=== PATIENT | male | born 1930 | race Caucasian/White ===

== ENCOUNTER 2018-08-25 06:45 | Inpatient (IN) | payer MEDICARE, BC ==
[~2018-08-25] VITALS: Ht 167.6 cm; Wt 65.0 kg
[2018-08-25] MEDS ORDERED: ondansetron/PF 4mg/2ml inj IV ONE (06:55)
[2018-08-25 07:19] LABS: BASOPHILS % (AUTO) 0.2 % (0-1); EOSINOPHILS % (AUTO) 0.3 % (0-6); LYMPHOCYTES # (AUTO) 0.6 X10'3 (1.1-4.8); MEAN CORPUSCULAR HEMOGLOBIN 31.3 PG (27.0-31.0); MEAN CORPUSCULAR HGB CONC 34.2 g/dL (33.0-36.5); MEAN CORPUSCULAR VOLUME 91.7 FL (78-98); MEAN PLATELET VOLUME 7.9 FL (7.4-10.4); MONOCYTES % (AUTO) 5.4 % (2-12); NEUTROPHILS # (AUTO) 16.9 X10'3 (1.8-7.7); NEUTROPHILS % (AUTO) 91.1 % (42-75); PLATELET COUNT 221 X10'3 (140-440); RED BLOOD COUNT 4.48 X10'6 (4.70-6.10); RED CELL DISTRIBUTION WIDTH 13.9 % (11.5-14.5); WHITE BLOOD COUNT 18.5 X10'3 (4.5-11.0)
--- NOTE | 2018-08-25 07:19 | NUR ---
ekg showed stemi,Dr. Berman ordered to hold off stemia lert and will talk to Dr. Baird first.CN aware.
--- NOTE | 2018-08-25 07:20 | NUR ---
per Dr. Berman-not calling it a stemi.Spouse at bedside.zofran given.
--- NOTE | 2018-08-25 07:20 | NUR ---
patient attached to ekg pads and monitor.
[2018-08-25 07:24] LABS: ALANINE AMINOTRANSFERASE 31 U/L (12-78); ALBUMIN 3.7 G/DL (3.4-5.0); ALBUMIN/GLOBULIN RATIO 1.1 (1.1-1.5); ALKALINE PHOSPHATASE 87 IU/L (46-116); ANION GAP 6 (8-16); ASPARTATE AMINO TRANSFERASE 20 U/L (10-37); BILIRUBIN,TOTAL 0.7 MG/DL (0.1-1.0); BLOOD UREA NITROGEN 22 MG/DL (7-18); CALCIUM 10.3 MG/DL (8.5-10.1); CHLORIDE 107 MMOL/L (99-107); CREATININE 1.22 MG/DL (0.60-1.10); GLUCOSE 182 MG/DL (70-104); POTASSIUM 4.4 MMOL/L (3.5-5.1); SODIUM 139 MMOL/L (135-145); TOTAL CARBON DIOXIDE 25.7 MMOL/L (24-32); eGFR 56 ML/MIN
[2018-08-25 07:25] LABS: PARTIAL THROMBOPLASTIN TIME 25 SECONDS (22-32)
[2018-08-25 07:31] LABS: MAGNESIUM 1.7 MG/DL (1.5-2.4)
--- NOTE | 2018-08-25 07:38 | NUR ---
PATIENT UNABLE TO URINATE AT THIS TIME.
--- NOTE | 2018-08-25 07:39 | NUR ---
BLOOD RESULT BACK,CODIE CHANGED FROM LEVEL 2 TO LEVEL 3.
[2018-08-25] MEDS ORDERED: TRAZ-251 PO (07:52)
--- NOTE | 2018-08-25 08:40 | NUR ---
urine collected thru straight cath noted 600ml clear orange urine.
--- NOTE | 2018-08-25 08:43 | NUR ---
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
--- NOTE | 2018-08-25 08:50 | NUR ---
URINE SENT TO [facility].
[2018-08-25 08:58] LABS: CLARITY,URINE CLEAR (Clear); COLOR,URINE YELLOW (Yellow); GLUCOSE, URINE NEGATIVE (Neg); KETONES,URINE NEGATIVE (Neg); LEUKOCYTE ESTERASE ,URINE NEGATIVE (Neg); NITRITES, URINE NEGATIVE (Neg); OCCULT BLOOD,URINE NEGATIVE (Neg); PH,URINE 5.5 (4.8-8.0); PROTEIN,URINE NEGATIVE (Neg); UROBILINOGEN,URINE 0.2 E.U/dL (0.2-1.0)
[2018-08-25 09:12] LABS: UA COLLECTION TYPE STRAIGHT CATH
[2018-08-25] MEDS: K and/or MAG REPLACEMENT MC SCH (11:20)
[2018-08-25] MEDS ORDERED: morphine 2 MG/ML inj. syringe IV PRN ×2 (11:20)
[2018-08-25] MEDS ORDERED: mag hydrox/Alum hydrox/simeth 30ml oral suspension PO PRN (11:20)
[2018-08-25] MEDS ORDERED: HYDROcodone/acetaminophen 5mg/325mg tablet PO PRN (11:20)
[2018-08-25] MEDS ORDERED: bisacodyl 10mg suppository rectal RC PRN (11:20)
[2018-08-25] MEDS ORDERED: diphenhydrAMINE 25mg capsule PO PRN (11:20)
[2018-08-25] MEDS ORDERED: ondansetron/PF 4mg/2ml inj IV PRN (11:20)
[2018-08-25] MEDS ORDERED: potassium Cl 20 mEq SR tablet PO PRN ×2 (11:20)
[2018-08-25] MEDS ORDERED: acetaminophen 325mg tablet PO PRN ×2 (11:20)
[2018-08-25] MEDS ORDERED: potassium Cl 40MEQ/NS 500ml 500 ML IV PRN ×2 (11:20)
[2018-08-25] MEDS ORDERED: magnesium hydroxide 30ml (MOM) UD suspension PO PRN (11:20)
[2018-08-25] MEDS ORDERED: magnesium 4gm in 100ml NS 100 ML IV PRN (11:20)
[2018-08-25] MEDS ORDERED: magnesium Cl slow-release 64mg tablet PO PRN (11:20)
[2018-08-25] MEDS ORDERED: magnesium 2GM in 50ml NS 50 ML IV PRN (11:20)
[2018-08-25] MEDS: normal saline 1000ml 1,000 ML IV SCH ×2 (11:33→13:21)
--- NOTE | 2018-08-25 12:24 | NUR ---
Dr. Baird at bedside.
[2018-08-25 14:30] LABS: HEMOGLOBIN A1C 5.8 % (4.5-6.2)
[2018-08-25 15:00] VITALS: BP 113/60
--- NOTE | 2018-08-25 16:09 | NUR ---
promotional table spacer PAGER ID: [phone] MESSAGE: [id number] Edson Rodriguez: Med rec is ready for you to review. EUSEBIO Marroquin Ext [phone]
--- NOTE | 2018-08-25 17:14 | NUR ---
Page to Case Management: [id number] pt Michael wants to do a new POA.
[2018-08-25 18:00] VITALS: BP 125/59
--- NOTE | 2018-08-25 18:15 | NUR ---
Patient in room PCU 3025. I have received report from Lopez and had the opportunity to ask questions and assume patient care.
--- NOTE | 2018-08-25 18:22 | NUR ---
Problems reprioritized. Patient report given, questions answered & plan of care reviewed with EUSEBIO Galarza.
[2018-08-25] MEDS: heparin, porcine 5000 units/ml vial SQ SCH (19:52)
[2018-08-25 22:00] VITALS: BP 119/49
[2018-08-26] VITALS (14 sets, daily range): BP systolic 106–159; BP diastolic 48–95
[2018-08-26 02:11] LABS: BASOPHILS % (AUTO) 0.3 % (0-1); EOSINOPHILS % (AUTO) 0.2 % (0-6); HEMOGLOBIN 12.9 g/dl (14.0-17.9); LYMPHOCYTES % (AUTO) 9.9 % (21-51); MEAN CORPUSCULAR HGB CONC 34.7 g/dL (33.0-36.5); MEAN CORPUSCULAR VOLUME 92.1 FL (78-98); MEAN PLATELET VOLUME 8.1 FL (7.4-10.4); MONOCYTES # (AUTO) 0.5 X10'3 (0-0.9); MONOCYTES % (AUTO) 4.8 % (2-12); NEUTROPHILS # (AUTO) 8.5 X10'3 (1.8-7.7); NEUTROPHILS % (AUTO) 84.8 % (42-75); PLATELET COUNT 173 X10'3 (140-440); RED BLOOD COUNT 4.02 X10'6 (4.70-6.10); RED CELL DISTRIBUTION WIDTH 14.1 % (11.5-14.5)
[2018-08-26 02:20] LABS: ALANINE AMINOTRANSFERASE 22 U/L (12-78); ALBUMIN 2.8 G/DL (3.4-5.0); ALBUMIN/GLOBULIN RATIO 0.9 (1.1-1.5); ALKALINE PHOSPHATASE 68 IU/L (46-116); ANION GAP 4 (8-16); ASPARTATE AMINO TRANSFERASE 16 U/L (10-37); BILIRUBIN,TOTAL 0.6 MG/DL (0.1-1.0); BLOOD UREA NITROGEN 18 MG/DL (7-18); BUN/CREATININE RATIO 19.1 (5.4-32.0); CALCIUM 8.9 MG/DL (8.5-10.1); CHLORIDE 105 MMOL/L (99-107); CHOL/HDL RATIO 3.1 (0.00-4.99); CHOLESTEROL 117 MG/DL (0-200); CREATININE 0.94 MG/DL (0.60-1.10); GLUCOSE 112 MG/DL (70-104); HDL CHOLESTEROL 38 MG/DL (35-60); LDL CHOLESTEROL 73 MG/DL (50-100); MAGNESIUM 1.7 MG/DL (1.5-2.4); SODIUM 135 MMOL/L (135-145); TOTAL CARBON DIOXIDE 25.7 MMOL/L (24-32); TOTAL PROTEIN 5.8 G/DL (6.4-8.2); TRIGLYCERIDES 78 MG/DL (20-135); eGFR 76 ML/MIN
--- NOTE | 2018-08-26 06:10 | NUR ---
Problems reprioritized. Patient report given, questions answered & plan of care reviewed with Kay.
--- NOTE | 2018-08-26 06:50 | NUR ---
Patient in room PCU 3025. I have received report from Uday KAPLAN and had the opportunity to ask questions and assume patient care.
[2018-08-26] MEDS: normal saline 1000ml 1,000 ML IV SCH ×2 (07:20→16:43)
[2018-08-26] MEDS: heparin, porcine 5000 units/ml vial SQ SCH ×2 (07:21→19:38)
[2018-08-26] MEDS: K and/or MAG REPLACEMENT MC SCH (08:00)
[2018-08-26] MEDS ORDERED: ceFAZolin 1000mg inj ONE (10:45)
[2018-08-26] MEDS ORDERED: cefazolin/dext.iso 2gm/100ml 100 ML IV ONE (10:46)
[2018-08-26] MEDS ORDERED: lidocaine 1%/epinephrine 1:100,000 injection 50ml vial ONE (10:46)
--- NOTE | 2018-08-26 10:55 | NUR ---
Patient picked up and taken to cathode builder for pacemaker placement.
[2018-08-26] MEDS ORDERED: fentaNYL/PF 50MCG/1 ML 2ML syringe ONE (11:22)
[2018-08-26] MEDS ORDERED: midazolam 2 mg/2 ml injection ONE (11:22)
--- NOTE | 2018-08-26 17:31 | NUR ---
Orientee documentation: I have reviewed and agree with all interventions, assessments performed and documented by Benita KAPLAN. ORientee Medication Administration: For this medication-pass time frame, all medication were reviewed, dispensed, administered and documented per hospital policy by Beinta KAPLAN.
--- NOTE | 2018-08-26 18:16 | NUR ---
Problems reprioritized. Patient report given, questions answered & plan of care reviewed with Zoe KAPLAN and Tiffany KAPLAN.
--- NOTE | 2018-08-26 18:43 | NUR ---
Patient in room PCU 3025R. I have received report from EUSEBIO LOUIS and had the opportunity to ask questions and assume patient care. PATIENT AWAKE FOR BEDSIDE REPORT AND STABLE AT THIS TIME. FAMILY IS AT BEDSIDE. NS INFUSING AT 100 mL/hr. WILL CONTINUE TO MONITOR CLOSELY.
--- NOTE | 2018-08-26 19:38 | NUR ---
1999 Heparin non administered. Patient received PPM/AICD today.
[2018-08-26] MEDS: HYDROcodone/acetaminophen 10/325mg tab PO PRN (20:27)
--- NOTE | 2018-08-26 23:17 | NUR ---
ADDENDUM TO CARDIOVASCULAR ASSESSMENT. PATIENT IS V-PACED. Addendum: 08/26/18 at 8108 by Mode Mir RN Amended: Links added.
[2018-08-27] MEDS: HYDROcodone/acetaminophen 10/325mg tab PO PRN (02:29)
[2018-08-27 03:00] VITALS: BP 166/75
--- NOTE | 2018-08-27 05:28 | NUR ---
B/P 0300 166/75, HR 61. PATIENT EXPERIENCING PAIN 10/24 RELATED TO PACEMAKER INSERTION. ADMINISTERED NORCO 10 AT THIS TIME. REASSESSED BP WITH SYS OF 191/89. DR. BURNS NOTIFIED. GRANTED ONE TIME NORVASC 2.5 MG PO. WILL CONTINUE TO MONITOR CLOSELY.
[2018-08-27] MEDS ORDERED: amLODIPine 2.5mg tablet PO ONE (05:30)
[2018-08-27 06:00] VITALS: BP 177/76
--- NOTE | 2018-08-27 06:06 | NUR ---
Problems reprioritized. Patient report given, questions answered & plan of care reviewed with EUSEBIO LOUIS AND EUSEBIO ABERNATHY.
--- NOTE | 2018-08-27 06:07 | NUR ---
Orientee documentation: I have reviewed and agree with all interventions, assessments performed and documented by Davin KAPLAN. Orientee Medication Administration: For this medication-pass time frame, all medication were reviewed, dispensed, administered and documented per hospital policy by Davin KAPLAN.
[2018-08-27 06:23] LABS: BASOPHILS % (AUTO) 0.2 % (0-1); EOSINOPHILS # (AUTO) 0.1 X10'3 (0-0.9); EOSINOPHILS % (AUTO) 0.6 % (0-6); HEMATOCRIT 37.9 % (42.0-52.0); HEMOGLOBIN 13.2 g/dl (14.0-17.9); LYMPHOCYTES # (AUTO) 2.1 X10'3 (1.1-4.8); LYMPHOCYTES % (AUTO) 18.9 % (21-51); MEAN CORPUSCULAR HEMOGLOBIN 31.3 PG (27.0-31.0); MEAN CORPUSCULAR HGB CONC 34.9 g/dL (33.0-36.5); MEAN CORPUSCULAR VOLUME 89.6 FL (78-98); MEAN PLATELET VOLUME 7.9 FL (7.4-10.4); MONOCYTES # (AUTO) 1.2 X10'3 (0-0.9); MONOCYTES % (AUTO) 10.7 % (2-12); NEUTROPHILS # (AUTO) 7.8 X10'3 (1.8-7.7); NEUTROPHILS % (AUTO) 69.6 % (42-75); PLATELET COUNT 170 X10'3 (140-440); RED BLOOD COUNT 4.23 X10'6 (4.70-6.10); RED CELL DISTRIBUTION WIDTH 13.5 % (11.5-14.5); WHITE BLOOD COUNT 11.2 X10'3 (4.5-11.0)
[2018-08-27 06:36] LABS: ALANINE AMINOTRANSFERASE 23 U/L (12-78); ALBUMIN 2.9 G/DL (3.4-5.0); ALBUMIN/GLOBULIN RATIO 0.9 (1.1-1.5); ALKALINE PHOSPHATASE 69 IU/L (46-116); ANION GAP 7 (8-16); ASPARTATE AMINO TRANSFERASE 20 U/L (10-37); BILIRUBIN,TOTAL 0.5 MG/DL (0.1-1.0); BLOOD UREA NITROGEN 10 MG/DL (7-18); CALCIUM 9.6 MG/DL (8.5-10.1); CHLORIDE 104 MMOL/L (99-107); CREATININE 0.83 MG/DL (0.60-1.10); GLUCOSE 132 MG/DL (70-104); MAGNESIUM 1.8 MG/DL (1.5-2.4); PHOSPHORUS 2.1 MG/DL (2.3-4.5); POTASSIUM 3.6 MMOL/L (3.5-5.1); SODIUM 135 MMOL/L (135-145); TOTAL CARBON DIOXIDE 23.6 MMOL/L (24-32); TOTAL PROTEIN 6.2 G/DL (6.4-8.2); eGFR 87 ML/MIN
[2018-08-27] MEDS: heparin, porcine 5000 units/ml vial SQ SCH (06:47)
[2018-08-27] MEDS: K and/or MAG REPLACEMENT MC SCH (06:53)
--- NOTE | 2018-08-27 07:28 | NUR ---
Patient in room PCU 3025. I have received report from Zoe KAPLAN and had the opportunity to ask questions and assume patient care.
[2018-08-27 08:29] VITALS: BP 168/81
--- NOTE | 2018-08-27 08:30 | NUR ---
Paged Dr Mims regarding patient's hypertension, 168/81, hr 60. PAGER ID: [phone] MESSAGE: Kay on PCU at [phone] re Singh Rodriguez in [id number]. He is a little bit hypertensive this morning, 168/81 with HR 60. He received 2.5 of Norvasc this morning at 0530.
[2018-08-27] MEDS ORDERED: CARV-49 PO (09:42)
[2018-08-27] MEDS ORDERED: CEPH250T PO (09:42)
[2018-08-27] MEDS ORDERED: carvedilol 6.25mg tablet PO ONE (09:55)
[2018-08-27 11:00] VITALS: BP_SYST 144; BP_SYST 166; BP_DIAS 76; BP_DIAS 81
[2018-08-27 11:05] VITALS: BP 145/85
[2018-08-27 11:10] VITALS: BP 144/76
--- NOTE | 2018-08-27 13:40 | NUR ---
Patient was discharged in stable condition by Dr Mims. All discharge paperwork and instructions were reviewed with the patient and son, they had no further questions at this time. His IV was removed wtih the catheter tip intact, there was minimal bleeding, and clean gauze and tape were applied. His tele monitor was removed and returned to the tele lift team technician. His left arm was in a sling, and his defibrillator site still has pressure dressing intact as per dr garcia. The patient was educated on post-defibrillator care instructions. His new meds were delivered by [facility]. The patient and his were both escorted out via wheelchair accompanied by their son, and they left in their son's private vehicle. The son drove them home. All belongings left with the patient.
== END 2018-08-27 13:40 | disposition home health service (06) | DRG 227 ==
LOC: ER 06:46 → PCU 3S 13:03
PROVIDERS: ADMIT Family Medicine; ATTEND Family Medicine
PROC: 0JH608Z Insertion of Defibrillator Generator into Chest Subcutaneous Tissue and Fascia, Open Approach (ICD-10-PCS; principal; 2018-08-26)
PROC: 02HK3KZ Insertion of Defibrillator Lead into Right Ventricle, Percutaneous Approach (ICD-10-PCS; 2018-08-26)
PROC: 02H63KZ Insertion of Defibrillator Lead into Right Atrium, Percutaneous Approach (ICD-10-PCS; 2018-08-26)
DX: I49.9 Cardiac arrhythmia, unspecified (principal); I44.0 Atrioventricular block, first degree; R55 Syncope and collapse; I49.5 Sick sinus syndrome; R00.1 Bradycardia, unspecified; N17.9 Acute kidney failure, unspecified; E86.0 Dehydration; D72.829 Elevated white blood cell count, unspecified; G89.29 Other chronic pain; I10 Essential (primary) hypertension
CPT/HCPCS: 33249; 36415; 71045; 71046; 80053; 80061; 81003; 83036; 83735; 83880; 84100; 84443; 84484; 85025; 85610; 85730; 87040; 87070; 93005; 93308; 96374; 99152; 99153; 99285; A4565; A4620; A6449; C1721; C1894; C1895; G0378; J0690; J2250; J2405; J3010; J3490; J7030